=== PATIENT | female | born 2000 | race Caucasian/White ===

== ENCOUNTER 2020-12-28 18:38 | Emergency (ER) | payer SELFPAY ==
[~2020-12-28] VITALS: Ht 152.4 cm; Wt 54.4 kg
[2020-12-28] MEDS ORDERED: ROBAXIN-750750 MG PO (20:47)
[2020-12-28] MEDS ORDERED: NAPROXEN250 MG PO (20:47)
== END 2020-12-28 21:04 | disposition home or self-care (01) ==
LOC: ER 18:50
DX: R07.89 Other chest pain (principal); M54.2 Cervicalgia; V43.52XA Car driver injured in collision with other type car in traffic accident, initial encounter; Y92.488 Other paved roadways as the place of occurrence of the external cause
CPT/HCPCS: 70450; 71046; 72125; 99283